=== PATIENT | male | born 1960 | race African-American/Black ===

== ENCOUNTER 2019-01-14 22:45 | Emergency (ER) | payer OTHER ==
[~2019-01-14] VITALS: Ht 182.9 cm; Wt 102.7 kg
[~2019-01-14 22:45] MED LIST: ACET1TAB40 PO; ASPI-817 PO; ATOR40TA68 PO; CYCL5TAB PO; IBUP-1542 PO; IBUP-1545 PO; LISI40TA3 PO
[2019-01-14 22:51] VITALS: Ht 182.9 cm; Wt 102.7 kg
[2019-01-15] MEDS ORDERED: IBUP-1545 PO (01:25)
--- NOTE | 2019-01-15 01:28 | ERD ---
ER Documentation Chief Complaint Chief Complaint R LEG PAIN AND SWELLING X'S 1 WEEK. HX BLOOD CLOT AND NH HPI Is a very pleasant 4-year-old male coming with swelling. He says a history of a blood clot. He denies any trauma. Denies any fevers or chills. Denies any nausea or vomiting. Denies any chest pain. Denies any palpitations. Denies any shortness of breath. ROS All systems reviewed and are negative except as per history of present illness. Medications Home Meds Active Scripts Ibuprofen* (Ibuprofen*) 800 Mg Tab, 800 MG PO Q6H PRN for PAIN, #30 TAB Prov:CAMPBELL MURPHY 01/15/19 Ibuprofen* (Motrin*) 600 Mg Tab, 600 MG PO Q8H PRN for PAIN, #20 TAB Prov:GRACE PHILIP 03/12/15 Cyclobenzaprine Hcl* (Cyclobenzaprine Hcl*) 5 Mg Tablet, 5 MG PO Q8H PRN for MUSCLE SPASMS, #14 TAB Prov:GRACE PHILIP 03/12/15 Reported Medications Acetaminophen-Codeine* (Acetaminophen-Cod #3*) 300-30 Mg Tab, 1 TAB PO Q4H PRN for PAIN, TAB 06/05/14 Lisinopril* (Lisinopril*) 40 Mg Tablet, 40 MG PO DAILY, TAB 06/05/14 Aspirin* (Aspirin* EC) 81 Mg Tablet.dr, 81 MG PO DAILY, TAB 06/05/14 Atorvastatin* (Atorvastatin*) 40 Mg Tablet, 40 MG PO HS, TAB 06/05/14 Allergies Allergies: Coded Allergies: No Known Allergy (Unverified , 03/13/15) PMhx/Soc History of Surgery: Yes Anesthesia Reaction: No Hx Neurological Disorder: No Hx Respiratory Disorders: No Hx Cardiac Disorders: Yes Hx Psychiatric Problems: No Hx Miscellaneous Medical Probl: No Hx Alcohol Use: No Hx Substance Use: No Hx Tobacco Use: Yes Smoking Status: Current every day smoker Physical Exam Vitals Vital Signs Date Temp Pulse Resp B/P (MAP) Pulse Ox O2 O2 Flow FiO2 Time Delivery Rate 01/14/19 72 18 125/68 95 Room Air 23:39 (87) 01/14/19 98.5 82 20 122/64 98 22:51 (83) Physical Exam Const: No acute distress Head: Atraumatic Eyes: Normal Conjunctiva ENT: Normal External Ears, Nose and Mouth. Neck: Full range of motion. No meningismus. Resp: Clear to auscultation bilaterally Cardio: Regular rate and rhythm, no murmurs Abd: Soft, non tender, non distended. Normal bowel sounds Skin: No petechiae or rashes Back: No midline or flank tenderness Ext: No cyanosis, or edema Neur: Awake and alert Psych: Normal Mood and Affect Procedures/MDM Ultrasound shows no evidence of DVT. At this point I feel patient stable for tr ial of outpatient management. Patient will be discharged home to follow-up with primary care physician. Return for any worsening symptoms. Departure Diagnosis: Primary Impression: Injury of right leg Encounter type: initial encounter Qualified Codes: S89.91XA - Unspecified injury of right lower leg, initial encounter Condition: Stable Patient Instructions: Myalgias CAMPBELL MURPHY Jan 15, 2019 01:28
[2019-01-15 01:49] VITALS: BP 134/71; PULSE 69; RESP 16
== END 2019-01-15 01:55 | disposition home or self-care (01) ==
LOC: E/R 22:45
DX: S89.91XA Unspecified injury of right lower leg, initial encounter (principal); F17.210 Nicotine dependence, cigarettes, uncomplicated; I25.2 Old myocardial infarction; R40.2142 Coma scale, eyes open, spontaneous, at arrival to emergency department; R40.2362 Coma scale, best motor response, obeys commands, at arrival to emergency department; R40.2252 Coma scale, best verbal response, oriented, at arrival to emergency department; M79.661 Pain in right lower leg; X58.XXXA Exposure to other specified factors, initial encounter; Y92.9 Unspecified place or not applicable; Z79.82 Long term (current) use of aspirin
CPT/HCPCS: 71045; 81003; 93970; Z7502

== ENCOUNTER → 2019-01-20 | Emergency (ER) | payer OTHER ==
[~2019-01-20] VITALS: Ht 182.9 cm; Wt 101.0 kg
[2019-01-20 12:55] VITALS: Ht 182.9 cm; Wt 101.0 kg
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
[2019-01-20 16:10] VITALS: BP 126/68; PULSE 60; RESP 20
== END | disposition home or self-care (01) ==
LOC: E/R 12:26
DX: R42 Dizziness and giddiness (principal); T40.3X5A Adverse effect of methadone, initial encounter; R40.2142 Coma scale, eyes open, spontaneous, at arrival to emergency department; R40.2252 Coma scale, best verbal response, oriented, at arrival to emergency department; R40.2362 Coma scale, best motor response, obeys commands, at arrival to emergency department; J44.9 Chronic obstructive pulmonary disease, unspecified; I25.2 Old myocardial infarction; Z72.0 Tobacco use; Z79.82 Long term (current) use of aspirin
CPT/HCPCS: 36415; 71045; 80048; 83880; 84484; 85025; 93005; Z7502